=== PATIENT | female | born 1955 | race Caucasian/White ===

== ENCOUNTER 2022-07-04 16:43 | Emergency (ER) | payer BC, OTHER ==
[~2022-07-04] VITALS: Ht 160 cm; Wt 59.4 kg
[~2022-07-04 16:43] MED LIST: CALCIUM + D PO; CALCIUM 1,2001 EACH; CORGARD40 MG PO
[2022-07-04] MEDS ORDERED: HYDROCODONE/APAP 5MG-325MG TAB PO ONE (18:00)
[2022-07-04] MEDS ORDERED: ACETAMINOPHEN-1 EAC4 PEG (18:07)
[2022-07-04] MEDS ORDERED: CEPHALEXIN500 MG PO (18:07)
== END 2022-07-04 18:23 | disposition home or self-care (01) ==
LOC: ER 16:53
DX: N81.10 Cystocele, unspecified (principal); E78.5 Hyperlipidemia, unspecified; K21.9 Gastro-esophageal reflux disease without esophagitis
CPT/HCPCS: 99282